=== PATIENT | male | born 1970 | race African-American/Black ===

== ENCOUNTER 2020-05-11 04:53 | Emergency (ER) | payer SELFPAY ==
[~2020-05-11] VITALS: Ht 170.2 cm; Wt 96.0 kg
[2020-05-11] MEDS ORDERED: NALOXONE 0.4 MG/ML, 1ML ONE (05:00)
--- NOTE | 2020-05-11 05:26 | NUR ---
[place] Patient was found lethargic with RA sat 88%. Patient arousable and AAOx4. Patient states he used too much heroin. Patient snorts heroin; last use around 0300 according to patient. Patient is in NAD. Respirations even and unlabored.
[2020-05-11] MEDS ORDERED: SODIUM CHLORIDE FLUSH 10ML SYR IVF ONE (05:30)
[2020-05-11] MEDS ORDERED: NALOXONE 0.4 MG/ML, 1ML IVPush PRN (05:30)
[2020-05-11] MEDS ORDERED: PLEASE ENTER ALLERGIES MC SCH (05:30)
[2020-05-11 05:42] LABS: BASOPHILS % (AUTO) 1 % (0-1); EOSINOPHILS % (AUTO) 2 % (1-7); LYMPHOCYTES % (AUTO) 24 % (22-44); MEAN CORPUSCULAR HEMOGLOBIN 27.3 pg (27.5-34.5); MEAN CORPUSCULAR HGB CONC 33.2 g/dL (33.2-36.2); MEAN PLATELET VOLUME 7.7 fL (7.4-10.4); MONOCYTES % (AUTO) 6 % (2-9); NEUTROPHILS % (AUTO) 68 % (42-75); PLATELET COUNT 240 x10^3/uL (130-400); RED BLOOD COUNT 5.31 x10^6/uL (4.38-5.82); RED CELL DISTRIBUTION WIDTH 17.6 % (9.4-14.8)
[2020-05-11 05:48] LABS: ALBUMIN 4.2 g/dL (3.4-5.0); ANION GAP 9 mmol/L (5-15); CALCIUM 8.9 mg/dL (8.5-10.1); CHLORIDE 107 mmol/L (98-107); CREATININE 1.46 mg/dL (0.7-1.3); T4 (THYROXINE) 5.6 mcg/dL (4.5-12.1)
[2020-05-11 05:52] LABS: MD NO
--- NOTE | 2020-05-11 06:58 | NUR ---
Report given to SAMEERA Telles. Patient care transferred.
--- NOTE | 2020-05-11 07:00 | NUR ---
assumed care of pt. report from Emily BRASHER pt here for letargy s/p heroin use. pt is currently sleeping, but is arousable. pt still requires O2 to maintain normal puse ox at this time. resting in position of comfort. no family at bedside. no apparent distress
--- NOTE | 2020-05-11 08:27 | NUR ---
pt has been sleeping but is more awake and trying to call his RA trial initiated
--- NOTE | 2020-05-11 08:35 | NUR ---
report to Braeden BRASHER
--- NOTE | 2020-05-11 09:46 | NUR ---
resumed care of pt. pt remians on RA. chart up for MD recheck
--- NOTE | 2020-05-11 10:00 | NUR ---
pt is sleepy, but easily arousable. pt has been hypertensive, but denies THOMPSON. no facial droop, KRISHNA without difficulty. no difficulty speaking.
[2020-05-11 11:48] VITALS: BP 174/103
--- NOTE | 2020-05-11 11:56 | NUR ---
this pt was D/C by another RN
== END 2020-05-11 11:50 | disposition home or self-care (01) ==
LOC: ED 05:56
DX: F11.10 Opioid abuse, uncomplicated (principal); R53.1 Weakness; R94.31 Abnormal electrocardiogram [ECG] [EKG]; I25.2 Old myocardial infarction; I10 Essential (primary) hypertension; F17.290 Nicotine dependence, other tobacco product, uncomplicated
CPT/HCPCS: 36415; 80048; 82040; 84436; 84443; 85025; 93005; 96374; 99285; J2310